=== PATIENT | female | born 1980 | race Caucasian/White ===

== ENCOUNTER 2016-10-22 18:48 | Emergency (ER) | payer MEDICAID ==
[~2016-10-22] VITALS: Ht 152.4 cm; Wt 52.0 kg
[2016-10-22 18:54] VITALS: Ht 152.4 cm; Wt 52.0 kg
[2016-10-22 20:55] LABS: ABNORMAL IP MESSAGE 1; BASOPHILS % 0.5 % (0.0-2.0); EOSINOPHILS % 0.2 % (0.0-7.0); HEMATOCRIT 36.1 % (37.0-47.0); HEMOGLOBIN 11.2 g/dl (12.0-16.0); LYMPHOCYTES # 2.6 10^3/ul (0.8-2.9); LYMPHOCYTES % 29.8 % (15.0-51.0); MEAN CORPUSCULAR HEMOGLOBIN 23.6 pg (29.0-33.0); MEAN CORPUSCULAR VOLUME 76.2 fl (82.0-101.0); MONOCYTE # 0.7 10^3/ul (0.3-0.9); MONOCYTES % 7.7 % (0.0-11.0); NEUTROPHIL # 5.3 10^3/ul (1.6-7.5); NEUTROPHILS % 61.6 % (39.0-77.0); PLATELET COUNT 148 10^3/UL (140-415); RED BLOOD COUNT 4.74 10^6/ul (4.20-5.40); WHITE BLOOD COUNT 8.6 10^3/ul (4.8-10.8)
[2016-10-22 20:58] LABS: POSITIVE DIFF @See below
[2016-10-22 21:33] LABS: ALBUMIN 4.3 g/dl (3.3-4.9); ALBUMIN/GLOBULIN RATIO 1.34; BILIRUBIN,INDIRECT 0.2 mg/dl (0-1.1); BILIRUBIN,TOTAL 0.2 mg/dl (0.2-1.3); CALCIUM 8.9 mg/dl (8.4-10.2); CREATININE 0.54 mg/dl (0.44-1.00); POTASSIUM 3.2 mmol/L (3.5-5.1); TOTAL PROTEIN 7.5 g/dl (6.1-8.1)
[2016-10-22] MEDS ORDERED: OMEP20CA16 PO (21:49)
[2016-10-22] MEDS ORDERED: CLAR500T PO (21:49)
[2016-10-22] MEDS ORDERED: METR500T PO (21:49)
[2016-10-22] MEDS ORDERED: AMO500 PO (21:49)
--- NOTE | 2016-10-22 23:29 | ERD ---
ER Documentation Chief Complaint Date/Time DATE: 10/22/16 TIME: 23:24 Chief Complaint feels like throat is dry. H pylori in Labs today HPI This is a 36-year-old female presenting to the emergency department with a chief complaint of acid reflux and weakness for the past few months. Patient states that she went to see her physician , in which they referred her here for hepatitis, H.pylori, and anemia. Patient states that she has been trying Pepcid for the past couple days without any relief. Patient denies any abdominal pain, nausea, vomiting, diarrhea. She denies any swelling in her abdomen ROS All systems reviewed and are negative except as per history of present illness. Medications Home Meds Active Scripts Metronidazole* (Flagyl*) 500 Mg Tablet, 500 MG PO TID for 14 Days, TAB Prov:MARLEY ARAGON PA-C 10/22/16 Clarithromycin* (Clarithromycin*) 500 Mg Tablet, 500 MG PO BID, #28 TAB Prov:MARLEY ARAGON PA-C 10/22/16 Amoxicillin* (Amoxicillin*) 500 Mg Cap, 500 MG PO BID, #28 CAP Prov:MARLEY ARAGON PA-C 10/22/16 Omeprazole* (Omeprazole*) 20 Mg Capsule., 20 MG PO DAILY, #30 Prov:MARLEY ARAGON PA-C 10/22/16 Allergies Allergies: Coded Allergies: No Known Allergy (Unverified , 10/22/16) PMhx/Soc Medical and Surgical Hx: pt denies Medical Hx History of Surgery: Yes (c-sections) Anesthesia Reaction: No Hx Alcohol Use: No Hx Substance Use: No Hx Tobacco Use: No Smoking Status: Never smoker Physical Exam Vitals Vital Signs Date Time Temp Pulse Resp B/P Pulse Ox O2 Delivery O2 Flow Rate FiO2 10/22/16 18:54 99.9 117 22 131/80 97 Physical Exam GENERAL: well-developed/well-nourished, in no apparent distress, non-toxic appearing HENT: NC/AT, moist mucous membranes EYES: Conjunctiva normal NECK: Supple, no lymphadenopathy PULM: CTA bilaterally, no rales, rhonchi, or wheezing heard CV: Normal S1S2, RRR, good capillary refill GI: Soft, non-distended, nontender to palpation Normal bowel sounds, no masses or organomegaly felt on exam No gross peritonitis, no bruits Negative Rovsing, negative Eubanks, negative McBurney's point, Negative CVAT BACK: No masses EXT: No clubbing, cyanosis, or edema NEURO: Alert and Orientated SKIN: Intact, normal turgor PSYCH: Normal mood and mentation Result Diagram: 10/22/16202910/22/16 2030 Results 24 hrs Laboratory Tests Test 10/22/16 20:30 White Blood Count 8.610^3/ul Red Blood Count 4.7410^6/ul Hemoglobin 11.2g/dl Hematocrit 36.1% Mean Corpuscular Volume 76.2fl Mean Corpuscular Hemoglobin 23.6pg Mean Corpuscular Hemoglobin Concent 31.0g/dl Red Cell Distribution Width 18.0% Platelet Count 53300^3/UL Mean Platelet Volume fl Neutrophils % 61.6% Lymphocytes % 29.8% Monocytes % 7.7% Eosinophils % 0.2% Basophils % 0.5% Nucleated Red Blood Cells % 0.0/100WBC Neutrophils # 5.310^3/ul Lymphocytes # 2.610^3/ul Monocytes # 0.710^3/ul Eosinophils # 0.010^3/ul Basophils # 0.010^3/ul Nucleated Red Blood Cells # 0.010^3/ul Sodium Level 144mmol/L Potassium Level 3.2mmol/L Chloride Level 101mmol/L Carbon Dioxide Level 26mmol/L Anion Gap 20 Blood Urea Nitrogen 10mg/dl Creatinine 0.54mg/dl Glucose Level 85mg/dl Calcium Level 8.9mg/dl Total Bilirubin 0.2mg/dl Direct Bilirubin 0.00mg/dl Indirect Bilirubin 0.2mg/dl Aspartate Amino Transf (AST/SGOT) 51IU/L Alanine Aminotransferase (ALT/SGPT) 73IU/L Alkaline Phosphatase 122IU/L Total Protein 7.5g/dl Albumin 4.3g/dl Globulin 3.20g/dl Albumin/Globulin Ratio 1.34 Lipase 35U/L Procedures/MDM This is a 36-year-old female presenting to the emergency department who was referred by Dr. Otoole for hepatitis, H. pylori and anemia. Patient brought laboratory results from Dr. Otoole in which he said positive for H pylori, patient had elevated transaminases. Patient did not have any tenderness in her abdomen, there was no evidence of ascites. I have repeated her lab work today, patient had mild elevation in transaminases however her bilirubin was normal. I discussed with her that it is best for her to follow-up with her primary care physician again. Patient's hemoglobin where it was around 11.2. I have given her a prescription for clarithromycin, Flagyl, amoxicillin and omeprazole for the next 14 days. I discussed with her to return to the ER for any worsening symptoms. Patient understands and agrees with this plan Departure Diagnosis: Primary Impression: Elevated transaminase level Additional Impression: H. pylori infection Condition: Stable Patient Instructions: Common Tests for Liver Disease, Understanding H. pylori and Ulcers, Liver Panel Additional Instructions: Visite a [facility] para un EXAMEN.Regrese a estas instalaciones si no se mejora tena esperbamos o tena le dijimos. [place] toda la medicina dorina y tena se le indic. Regrese a estas instalaciones si no se mejora tena esperbamos o tena le dijimos. MARLEY ARAGON PA-C Oct 22, 2016 23:29
== END 2016-10-22 22:02 | disposition home or self-care (01) ==
LOC: FTE 18:48
DX: R74.0 Nonspecific elevation of levels of transaminase and lactic acid dehydrogenase [LDH] (principal); B96.81 Helicobacter pylori [H. pylori] as the cause of diseases classified elsewhere
CPT/HCPCS: 36415; 80053; 83690; 85025; Z7502; 99284